=== PATIENT | female | born 1975 | race Caucasian/White ===

== ENCOUNTER → 2016-12-16 | Outpatient (CLI) | payer BC ==
[~2016-12-16] MED LIST: ALBUAER19 INH; CLC100X PO; FERR324T PO; IBUP-1277 PO; LEVO1TAB33 PO; robitussin PO
== END | disposition home or self-care (01) ==
LOC: C.LABSPEC 15:59
PROVIDERS: ATTEND Physician Assistant
DX: N94.9 Unspecified condition associated with female genital organs and menstrual cycle (principal)

== ENCOUNTER → 2017-02-10 | Day surgery (SDC) | payer BC ==
[2017-02-04 11:35] VITALS: BMI 53.0
[~2017-02-10] VITALS: Ht 162.6 cm; Wt 140.0 kg
[~2017-02-10] MED LIST changes: +CETI10TA84 PO; -CLC100X PO; +COLE1TAB PO; -FERR324T PO; +FEXO1TAB49 PO; +FLUT50SP45 NAE; +FLVHFA110 INH; -IBUP-1277 PO; -LEVO1TAB33 PO; +LEVOIUD; +LIDOCAINE HCL 2% 2 ML VIAL (20MG/ML) ONE; +MELA1TAB22 PO; +MIDAZOLAM HCL 1 MG/ML 2ML VIAL ONE; +MONT1TAB5 PO; +NAPR-1169 PO; +PANT40TA PO; +PROPOFOL IV EMULSION 10 MG/ML 20 ML VIAL IV ONE; +SODIUM CHLORIDE 0.9% 500ML 500 ML IV ONE; -robitussin PO
[2017-02-10 12:55] VITALS: Ht 162.6 cm; Wt 140.0 kg
--- NOTE | 2017-02-10 13:39 | Endo History and Physical ---
History & Physical Date of Service: Feb 10, 2017. Chief Complaint: ACUTE DIARRHEA Referring Physician: DR. ALCARAZ History of Present Illness Chronic diarrhea with elevated ESR. Past Surgical History Hx Cardiac Surgery: No Hx Internal Defibrillator: No Hx Pacemaker: No Hx Abdominal Surgery: Yes (KERLINE, D&C'S X 3) Hx of Implantable Prosthesis: No Hx Post-Op Nausea and Vomiting: No Hx Cancer Surgery: No Hx Thoracic Surgery: No Hx Orthopedic: No Hx Urinary Tract Surgery: No Social History Smoking Status: Never Smoker Hx Substance Use: Yes (MARIJUANA CONSUMED LAST MONTH) Hx Alcohol Use: Yes (OCCASIONALLY) Allergies Coded Allergies: Prednisone (Verified Allergy, Unknown, RASH TO BACK, FACE & UPPER ARM, ) Sulfamethoxazole w/Trimethoprim (Verified Allergy, Unknown, GI SYMPTOMS AND FEVER, 02/10/17) Current Medications Reported Home Medications Medications Dose Route/Sig Max Daily Dose Days Date Category Zyrtec (Cetirizine HCl) 10 Mg Tab 10 Mg PO HS 02/04/17 Reported Olga Lidia Allergy (Fexofenadine Hcl) 180 Mg Tab 1 Tab PO HS 14 02/04/17 Reported Allergy Nasal [place] 24 Ho (Fluticasone Propionate (Nasal)) 50 Mcg/Act Spr 1 [place] ION BID PRN 02/04/17 Reported Mirena (Levonorgestrel (Iud)) 20 Mcg/24 Hr Iud 02/04/17 Reported Flovent Hfa (Fluticasone Propionate) 120 Puffs/30851 Mcg Aero 2 Puffs INH BID PRN 30 02/04/17 Reported Montelukast Sodium 10 Mg Tab 1 Tab PO HS 90 02/04/17 Reported Protonix (Pantoprazole Sodium) 40 Mg Tab 40 Mg PO HS 02/04/17 Reported Naprosyn (Naproxen) 500 Mg Tab 500 Mg PO BID PRN 02/04/17 Reported Colestid (Colestipol Hcl) 1 Gm Tab 2 Tab PO QPM 02/04/17 Reported Melatonin (Melatonin-Pyridoxine) 1 Tab Tab 10 Mg PO HS 02/04/17 Reported Ventolin Inhaler (Albuterol) Aers 2 Puffs INH PRN 05/13/12 Reported Vital Signs Weight (Kilograms): 140.00 Height (Feet): 5 Height (Inches): 4 Date Time Temp Pulse Resp B/P (MAP) Pulse Ox O2 Delivery O2 Flow Rate FiO2 02/10/17 13:06 36.5 104 20 153/90 (111) 94 Room Air Physical Exam General Appearance: WD/WN, no apparent distress, + obese Respiratory/Chest: Auscultation: breath sounds normal, no wheezing Cardiovascular: Heart Auscultation: RRR, no murmurs Abdomen: Inspection & Palpation: soft, no tenderness, guarding & rebound Assessment and Plan Colonoscopy today.
--- NOTE | 2017-02-10 14:06 | Discharge Instructions ---
Endoscopy Patient Instructions Date / Procedure(s) Performed Feb 10, 2017. Colonoscopy Allergy Information Coded Allergies: Prednisone (Verified Allergy, Unknown, RASH TO BACK, FACE & UPPER ARM, ) Sulfamethoxazole w/Trimethoprim (Verified Allergy, Unknown, GI SYMPTOMS AND FEVER, 02/10/17) Discharge Date / Findings Feb 10, 2017. Diverticulosis. Random colon biopsies obtained. Medication Instructions Restart Stopped Medication(s): Restart all medications including colestipol. Provider Instructions Activity Restrictions - No exercising or heavy lifting for 24 hours. - Do not drink alcohol the day of the procedure. - Do not drive a car or operate machinery until the day after the procedure. - Do not make any important decisions or sign important papers in 24 hours after the procedure. Following Day: - Return to full activity which may include returning to work/school. Diet Start your diet with liquids and light foods (jello, soup, juice, toast). Then eat your usual diet if not nauseated. Treatment For Common After Affects For mild abdominal pain, bloating, or excessive gas: - Rest - Eat lightly - Lie on right side Follow-Up Information Follow-up with DR. ALCARAZ as scheduled Anesthesia Information What You Should Know You have had a procedure that required some medicine to reduce anxiety and discomfort. This treatment is called moderate sedation. After receiving the treatment, you may be sleepy, but you will be able to breathe on your own. The effects of the treatment may last for several hours. Follow these instructions along with Activity/Diet recommendations noted above: * Do NOT do anything where dizziness or clumsiness would be dangerous. * Rest quietly at home today, then you can be up and about tomorrow. * Have a responsible person stay with you the rest of today. * You may have had an I.V. today. If so, you may take the dressing off later today. Recommendations Call your doctor if: * Trouble breathing * Continuous vomiting for more than 24 hours * Temperature above 101 degrees * Severe abdominal pain or bloating * Pain not relieved by pain medicine ordered * There is increased drainage or redness from any incision * A large amount of rectal bleeding greater than 2-3 tablespoons. (If you had a polyp/s removed or have hemorrhoids, a small amount of blood - from the rectum is to be expected.) * You have any unanswered questions or concerns. IN THE EVENT OF A SERIOUS EMERGENCY, GO TO THE NEAREST EMERGENCY ROOM Your discharge instructions were prepared by provider Artemio Travis. Patient Instructions Signature Page Gurpreet Burks Patient (or Guardian) Signature/Date: I have read and understand the instructions given to me by my caregivers. Caregiver/RN/Doctor Signature/Date: The above-named patient and/or guardian has received patient instructions on this date. + Original Patient Signature Page (only) stays with chart. Please make copy for patient.
--- NOTE | 2017-02-10 14:33 | Anesthesiology Progress Note ---
Anesthesia Post Op Note Date & Time Feb 10, 2017 at 14:32 Vital Signs Pain Intensity: 0 Vital Signs Past 12 Hours Date Time Temp Pulse Resp B/P (MAP) Pulse Ox O2 Delivery O2 Flow Rate FiO2 02/10/17 14:13 101 20 115/74 (88) 99 Room Air 02/10/17 13:06 36.5 104 20 153/90 (111) 94 Room Air Notes Mental Status: alert / awake / arousable, participated in evaluation Pt Amnestic to Procedure: Yes Nausea / Vomiting: adequately controlled Pain: adequately controlled Airway Patency, RR, SpO2: stable & adequate BP & HR: stable & adequate Hydration State: stable & adequate Anesthetic Complications: no major complications apparent Doing well. Awake. VSS.
[2017-02-10 14:46] VITALS: BP 135/89; PULSE 98; O2SAT 99
--- NOTE | 2017-02-11 00:14 | GI REPORT ---
Procedure Date: 02/10/2017 1:47 PM Procedure: Colonoscopy Indications: Chronic diarrhea Medicines: Propofol per Anesthesia Complications: No immediate complications. Estimated blood loss: None. Estimated Blood Loss: Estimated blood loss: none. Procedure: Pre-Anesthesia Assessment: - Prior to the procedure, a History and Physical was performed, and patient medications, allergies and sensitivities were reviewed. The patient's tolerance of previous anesthesia was reviewed. - ASA Grade Assessment: III - A patient with severe systemic disease. After I obtained informed consent, the scope was passed under direct vision. Throughout the procedure, the patient's blood pressure, pulse, and oxygen saturations were monitored continuously. The scope was introduced through the anus and advanced to the terminal ileum, with identification of the appendiceal orifice and IC valve. The colonoscopy was performed with ease. The patient tolerated the procedure well. The quality of the bowel preparation was excellent. The bowel preparation used was split dose MIralax. Findings: A few medium-mouthed diverticula were found in the left colon. Normal mucosa was found in the entire colon. Biopsies for histology were taken with a cold forceps from the entire colon for evaluation of microscopic colitis. Verification of patient identification for the specimen was done by the physician and nurse using the patient's name, date and medical record number. Impression: - Diverticulosis in the left colon. - Normal mucosa in the entire examined colon. Biopsied. - The colon was otherwise normal to the terminal ileum with retroflexed views of the colon and terminal ileum. Recommendation: - Await pathology results. - Continue present medications. Artemio Travis M.D. Artemio Travis MD 02/10/2017 2:10:32 PM This report has been signed electronically. Note Initiated On: 02/10/2017 1:47 PM I attest to the content of the Intraoperative Record and orders documented therein, exceptions below
== END | disposition home or self-care (01) ==
LOC: C.GI 12:39
PROVIDERS: ATTEND Internal Medicine Gastroenterology
DX: K57.30 Diverticulosis of large intestine without perforation or abscess without bleeding (principal); R70.0 Elevated erythrocyte sedimentation rate; Z79.899 Other long term (current) drug therapy

== ENCOUNTER → 2017-06-26 | Outpatient (CLI) | payer OTHER ==
[~2017-06-26] MED LIST changes: +LEVO1IUD2; -LEVOIUD; -LIDOCAINE HCL 2% 2 ML VIAL (20MG/ML) ONE; -MIDAZOLAM HCL 1 MG/ML 2ML VIAL ONE; -PROPOFOL IV EMULSION 10 MG/ML 20 ML VIAL IV ONE; -SODIUM CHLORIDE 0.9% 500ML 500 ML IV ONE
== END | disposition home or self-care (01) ==
LOC: C.PAPS 17:33
PROVIDERS: ATTEND Physician Assistant
DX: Z12.4 Encounter for screening for malignant neoplasm of cervix (principal)